=== PATIENT | female | born 1960 | race Caucasian/White ===

== ENCOUNTER 2017-04-18 20:16 | Inpatient (IN) ==
[2017-04-19] MEDS ORDERED: Ondansetron 4 MG/2 ML VIAL IVP PRN (01:46)
[2017-04-19] MEDS ORDERED: Naloxone 0.4 MG/ML INJ IVP PRN (01:46)
[2017-04-19] MEDS ORDERED: Ipratropium/Albuterol Neb 3 ML IH PRN (01:54)
[2017-04-19] MEDS ORDERED: *HR* LORazepam 2 MG/ML VIAL IVP PRN ×2 (01:57)
[2017-04-19 02:30] LABS: Hemoglobin 12.2 g/dL (11.5-15.4); Mean Corpuscular Hemoglobin 32.1 pg (28.0-33.3); Mean Corpuscular Volume 97.4 fL (83.0-100.0); Mean Platelet Volume 10.2 fL (9.4-12.4); Platelet Count 196 K/mcL (140-400); Red Cell Distribution Width 14.3 % (11.5-14.5)
[2017-04-19 02:45] LABS: BUN/Creatinine Ratio 11 (6-26); Blood Urea Nitrogen 8 mg/dL (6-20); Calcium 8.5 mg/dL (8.6-10.3); Carbon Dioxide 28 mEq/L (23-29); Chloride 98 mEq/L (98-107); Glucose 186 mg/dL (70-105); Magnesium 2.2 mg/dL (1.6-2.6); Osmolality,Calculated 281 (280-300); Phosphorous 3.5 mg/dL (2.7-4.5); Potassium 3.6 mEq/L (3.5-5.1); Sodium 134 mEq/L (136-145); eGFR For African Americans > 60 (> 60); eGFR For Non-African Americans > 60 (> 60)
[2017-04-19] MEDS: 0.9 % Sodium Chloride 1,000 ML IVC SCH ×2 (03:00→21:40)
[2017-04-19] MEDS: Acetaminophen 325 MG TABLET PO PRN (03:00)
[2017-04-19] MEDS: Azithromycin 500 MG in D5% in Water 250 ML IVPB SCH (03:01)
[2017-04-19 03:06] LABS: Lymphocytes # 0.8 K/mcL (0.6-4.6); Monocytes # 0.2 K/mcL (0.0-1.3); Platelet Estimate Normal (Normal)
[2017-04-19] MEDS: Ipratropium/Albuterol Neb 3 ML IH SCH ×4 (04:16→21:12)
--- NOTE | 2017-04-19 05:37 | Internal Med History&Physical ---
Date of Encounter: 04/19/17 Time of Encounter: 02:00 Assessment and Plan (1) Community acquired pneumonia Current visit: No Status: Acute Will treat pt with azithromycin and rocephin. Symptomatic treatment. Qualifiers: Laterality: unspecified laterality Qualified Code(s): J18.9 - Pneumonia, unspecified organism (2) Tobacco use Current visit: No Status: Chronic Smoking cessation education. Nicotine patch. (3) Alcohol use Current visit: No Status: Chronic Pt has hx of alcoholism, last drink was [address] pt on CIWA protocol and closely monitor pt. (4) DVT prophylaxis Current visit: No Status: Inactive Heparin SC (5) Acute exacerbation of chronic obstructive airways disease Current visit: No Status: Acute Pt has hx of COPD, has wheezing and increased SOB, consider COPD exacerbation. - Cont abx, steroid, and duoneb. Internal Medicine - H&P: HPI Chief complaint: Cough and SOB Admitted From: Home Plans for Post Hospital Care: Home History of present illness: Ms. 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 Pt said she feel ear fullness, sore throat since last . Pt also has nonproductive cough and subjective fever. Pt c/o SOB and nausea, but no vomiting. She said chest ache which may caused by cough. Pt has mild whole abd pain. Denies diarrhea. In [facility] [facility], CXR should possible lung infection. Pt was admitted for COPD exacerbation and pneumonia. Past Med Surg Social Fam HX - Past Medical History Medical history: COPD, GERD, hypertension, other Psychiatric history: no psych history - Past Surgical History Surgical History: , cholecystectomy, other - Social History Smoking Status: Current every day smoker Packs per day: 4 Smokeless Tobacco Status: No Alcohol use: heavy Drug use: none - Family History Father Living Status: Mother Living Status: Still Living Hx Family Respiratory Disorders: Yes (Emphysema) Internal Medicine - H&P: Meds Multivitamin [Multivitamins] 1 each PO DAILY 11/18/14 [History] Omeprazole [PriLOSEC] 20 mg PO BID 11/18/14 [History] Vitamin E 400 unit PO DAILY 11/18/14 [History] Calcium Carbonate/Vitamin D3 [Calcium 600 + Vit D Tablet] 1 tab PO DAILY [History] Vitamin C 1,000 mg PO DAILY 08/27/15 [History] Budesonide/Formoterol 160/4.5 [Symbicort 160/4.5] 160 mg IH TID 04/18/17 [ History] Gabapentin [Neurontin] 600 mg PO BID 04/18/17 [History] 3 Allergy/AdvReac Type Severity Reaction Status Date / Time venom-honey bee Allergy Mild Hives Verified 08/27/15 11:41 [bee venom (honey bee)] All Systems PM: A 10-system review of systems was performed and is negative for pertinent findings except as documented above in the HPI. - Constitutional Vitals: Temp Pulse Resp BP Pulse Ox 98.3 F 88 20 107/68 90 04/19/17 03:01 04/19/17 03:01 04/19/17 04:16 04/19/17 03:01 04/19/17 03:01 General appearance: Present: A&O X 3, no acute distress, answers questions appropriately - Head Head exam: Present: atraumatic, normocephalic - Eye Eye exam: Present: PERRL, conjuntiva pink, sclera anicteric Pupils: Present: PERRL - Neck Neck exam general surgery: Present: supple, trachea midline. Absent: lymphadenopathy - Respiratory Respiratory exam: Present: CTAB, wheezes (scattered wheezes b/l). Absent: accessory muscle use, rales, rhonchi - Cardiovascular Cardiovascular exam: Present: RRR, +S1, +S2. Absent: diastolic murmur, gallop, rubs, systolic murmur - GI/Abdominal GI/Abdominal exam: Present: normal bowel sounds, soft, no peritoneal signs. Absent: distended, tenderness - Extremities Exam Extremities exam: Present: warm, radial pulses palpable and symmetrical. Absent : calf tenderness, cyanotic, pedal edema - Neurological Exam Neurological exam: Present: CN II-XII intact, oriented X3, no focal deficits. Absent: pronater drift, facial droop, speech deficit - Skin Skin exam: Present: dry, intact Internal Med - H&P Results - Labs CBC & Chem 7: 04/19/17 02:07 04/19/17 02:07 Labs: Short CBC 04/19/17 Range/Units 02:07 WBC 8.0 (4.3-11.1) K/mcL Hgb 12.2 (11.5-15.4) g/dL Hct 37.0 (35.3-44.9) % Plt Count 196 (140-400) K/mcL Neutrophils # 7.0 (1.6-8.9) K/mcL BMP 04/19/17 02:07 Sodium 134 L Potassium 3.6 Chloride 98 Carbon Dioxide 28 BUN 8 Creatinine 0.70 Glucose 186 H Calcium 8.5 L - EKG Data -: EKG Interpreted by Myself EKG shows normal: sinus rhythm Rate: normal
[2017-04-19] MEDS: *HR* Heparin 5,000 UNIT/ML VIAL SQ SCH ×2 (06:06→19:12)
[2017-04-19] MEDS: Ascorbic Acid 500 MG TABLET PO SCH (09:50)
[2017-04-19] MEDS: Gabapentin 300 MG CAPSULE PO SCH ×2 (09:50→19:56)
[2017-04-19] MEDS: Multivit/Ca/Min/Fe/FA 1 TAB TABLET PO SCH (09:50)
[2017-04-19] MEDS: predniSONE 20 MG TABLET PO SCH (09:51)
[2017-04-19] MEDS: Nicotine 21 MG PATCH.TD24 TD SCH (09:52)
[2017-04-19] MEDS: Budesonide/Formoterol 160/4.5 MDI IH SCH ×2 (11:42→21:11)
[2017-04-19] MEDS: cefTRIAXone 1,000 MG in Water for inj. (sterile) 20 ML 10 ML IVP SCH (15:59)
--- NOTE | 2017-04-19 17:14 | Event Note ---
Date of Encounter: 04/19/17 Time of Encounter: 10:30 Patient continues to have shortness of breath and wheezing. Improved compared to yesterday evening. Denies any chest pain. No nausea or vomiting. Continue O2 supplementation. Patient will need to be evaluated for home oxygen prior to discharge.
[2017-04-19] MEDS: Thiamine (B-1) 100 MG, Folic Acid 1 MG, MVI, adult with vitamin K 10 ML in 0.9 % Sodi... IVPB SCH (19:13)
[2017-04-19 20:26] LABS: Adenovirus Not Detected (Not Detect); Bordetella Pertussis Not Detected (Not Detect); Chlamydophila pneumoniae Not Detected (Not Detect); Coronavirus 229E Not Detected (Not Detect); Coronavirus HKU1 Not Detected (Not Detect); Coronavirus NL63 Not Detected (Not Detect); Coronavirus OC43 Not Detected (Not Detect); Human Metapneumovirus Not Detected (Not Detect); Human Rhinovirus/Enterovirus Not Detected (Not Detect); Influenza A Subtype 2009 H1 Not Detected (Not Detect); Influenza A Untypeable Not Detected (Not Detect); Influenza B Not Detected (Not Detect); Mycoplasma pneumoniae Not Detected (Not Detect); Parainfluenza Virus 1 Not Detected (Not Detect); Parainfluenza Virus 2 Not Detected (Not Detect); Parainfluenza Virus 3 Not Detected (Not Detect); Parainfluenza Virus 4 Not Detected (Not Detect); Respiratory Syncytial Virus Not Detected (Not Detect)
[2017-04-20] MEDS: Ipratropium/Albuterol Neb 3 ML IH SCH ×4 (03:36→21:44)
[2017-04-20] MEDS: Budesonide/Formoterol 160/4.5 MDI IH SCH ×4 (03:37→21:44)
[2017-04-20] MEDS: Azithromycin 500 MG in D5% in Water 250 ML IVPB SCH (05:38)
[2017-04-20] MEDS: *HR* LORazepam 2 MG/ML VIAL IVP PRN (05:51)
[2017-04-20] MEDS: *HR* Heparin 5,000 UNIT/ML VIAL SQ SCH ×2 (05:52→18:20)
[2017-04-20] MEDS: predniSONE 20 MG TABLET PO SCH (09:08)
[2017-04-20] MEDS: Ascorbic Acid 500 MG TABLET PO SCH (09:09)
[2017-04-20] MEDS: Gabapentin 300 MG CAPSULE PO SCH ×2 (09:09→19:56)
[2017-04-20] MEDS: Nicotine 21 MG PATCH.TD24 TD SCH (09:16)
[2017-04-20] MEDS: Multivit/Ca/Min/Fe/FA 1 TAB TABLET PO SCH (09:19)
[2017-04-20] MEDS: Acetaminophen 325 MG TABLET PO PRN (13:23)
[2017-04-20] MEDS: cefTRIAXone 1,000 MG in Water for inj. (sterile) 20 ML 10 ML IVP SCH (14:39)
--- NOTE | 2017-04-20 15:53 | Internal Med Progress Note ---
Date of Encounter: 04/20/17 Time of Encounter: 10:25 - Assessment and plan (1) Acute respiratory failure with hypoxia Current Visit: Yes Status: Acute Assessment and plan: Continue O2 supplementation. Wean FiO2 as tolerated. Due to acute exhibition of COPD and pneumonia. Will evaluate for home oxygen needs prior to discharge. (2) Acute exacerbation of chronic obstructive airways disease Current Visit: Yes Status: Acute Assessment and plan: Continue prednisone, bronchodilator nebs. Patient continues to have significant wheezing and hypoxia. (3) Community acquired pneumonia Current Visit: Yes Status: Acute Assessment and plan: Bibasal A based these per initial chest x-ray. Continue current antibiotics. Respiratory infection panel was negative. Continue ceftriaxone and azithromycin. Moderate risk for complications Qualifiers: Laterality: unspecified laterality Qualified Code(s): J18.9 - Pneumonia, unspecified organism (4) Tobacco use Current Visit: No Status: Chronic (5) Alcohol use Current Visit: Yes Status: Chronic Assessment and plan: Monitoring for withdrawal symptoms Per CIWA protocol. Continue thiamine. (6) DVT prophylaxis Current Visit: Yes Status: Inactive Assessment and plan: With subcutaneous heparin - Subjective Interval history: Patient complains of increased stuffiness in her nose and ears. Shortness of breath is improving. Cough is also improving. No fever or chills reported overnight. Still requiring O2 supplementation. - Constitutional Vitals: Temp Pulse Resp BP Pulse Ox 98.4 F 87 17 118/75 93 04/20/17 07:36 04/20/17 07:36 04/20/17 07:36 04/20/17 07:36 04/20/17 11:47 General appearance: Present: A&O X 3, no acute distress, answers questions appropriately - Respiratory Respiratory exam: Present: prolonged expiratory phase, wheezes (Bilateral end expiratory). Absent: accessory muscle use, rales, rhonchi - Cardiovascular Cardiovascular exam: Present: RRR, +S1, +S2. Absent: diastolic murmur, gallop, rubs, systolic murmur - GI/Abdominal GI/Abdominal exam: Present: normal bowel sounds, soft, no peritoneal signs. Absent: distended, tenderness - Extremities Exam Extremities exam: Present: warm, radial pulses palpable and symmetrical. Absent : calf tenderness, cyanotic, pedal edema - Neurological Exam Neurological exam: Present: CN II-XII intact, oriented X3, no focal deficits. Absent: facial droop, speech deficit Internal Medicine: Result - Labs CBC & Chem 7: 04/19/17 02:07 04/19/17 02:07 Consult Discharge Plan - Plan Referrals: Jade Snider CNP [Advanced Practice Nurse] - 04/25/17 10:00 am
[2017-04-20] MEDS: Thiamine (B-1) 100 MG, Folic Acid 1 MG, MVI, adult with vitamin K 10 ML in 0.9 % Sodi... IVPB SCH (18:10)
[2017-04-20] MEDS: Acetaminophen/Butalbital/CaffeineTABLET PO PRN (19:56)
[2017-04-21] MEDS: *HR* LORazepam 2 MG/ML VIAL IVP PRN (00:53)
[2017-04-21] MEDS: Ipratropium/Albuterol Neb 3 ML IH SCH ×2 (04:27→10:31)
[2017-04-21] MEDS: Azithromycin 500 MG in D5% in Water 250 ML IVPB SCH (05:09)
[2017-04-21] MEDS: *HR* Heparin 5,000 UNIT/ML VIAL SQ SCH (05:10)
[2017-04-21 06:35] VITALS: BP 128/72
[2017-04-21] MEDS: Acetaminophen/Butalbital/CaffeineTABLET PO PRN (06:55)
[2017-04-21] MEDS: Multivit/Ca/Min/Fe/FA 1 TAB TABLET PO SCH (10:18)
[2017-04-21] MEDS: Gabapentin 300 MG CAPSULE PO SCH (10:18)
[2017-04-21] MEDS: Ascorbic Acid 500 MG TABLET PO SCH (10:18)
[2017-04-21] MEDS: Nicotine 21 MG PATCH.TD24 TD SCH (10:18)
[2017-04-21] MEDS: predniSONE 20 MG TABLET PO SCH (10:18)
[2017-04-21] MEDS: Budesonide/Formoterol 160/4.5 MDI IH SCH (10:30)
--- NOTE | 2017-04-21 12:13 | Discharge Summary ---
Date of Encounter: 04/21/17 Time of Encounter: 11:58 - Discharge Diagnosis (1) Acute respiratory failure with hypoxia Priority: Primary Status: Acute (2) Acute exacerbation of chronic obstructive airways disease Priority: Secondary Status: Acute (3) Community acquired pneumonia Priority: Secondary Status: Acute Qualifiers: Laterality: unspecified laterality Qualified Code(s): J18.9 - Pneumonia, unspecified organism (4) Tobacco use Priority: Secondary Status: Chronic (5) Alcohol use Priority: Secondary Status: Chronic (6) DVT prophylaxis Priority: Secondary Status: Acute - Discharge Medications Prescriptions: GuaiFENesin/Dextromethorphan [Robitussin/Dm] 10 ml PO Q6HR PRN #250 ml PRN Reason: Cough Azithromycin [Zithromax] 500 mg PO DAILY 5 Days #10 tablet Cefdinir [Omnicef] 300 mg PO BID #14 capsule predniSONE [PredniSONE] 10 mg PO DAILY 8 Days tablet Home Medications: Multivitamin [Multivitamins] 1 each PO DAILY 11/18/14 [History] Vitamin E 400 unit PO DAILY 11/18/14 [History] Ascorbic Acid [Vitamin C] 1,000 mg PO DAILY #0 08/27/15 [History] Calcium Carbonate/Vitamin D3 [Calcium 600 + Vit D Tablet] 1 tab PO DAILY [History] Budesonide/Formoterol 160/4.5 [Symbicort 160/4.5] 160 mg IH TID 04/18/17 [ History] Aclidinium Gordon [Tudorza Pressair] 400 mcg IH DAILY 04/19/17 [History] Cholestyramine 4 gm PO DAILY 04/19/17 [History] Cyanocobalamin (Vitamin B-12) [Vitamin B-12] 1,000 mcg SL DAILY 04/19/17 [ History] Fluticasone Propionate Nasal [Flonase] 1 spr NS DAILY PRN 04/19/17 [History] Gabapentin [Neurontin] 300 mg PO TID 04/19/17 [History] Magnesium Oxide 400 mg PO DAILY 04/19/17 [History] Omeprazole [PriLOSEC] 40 mg PO DAILY 04/19/17 [History] Promethazine [Phenergan] 25 mg PO DAILY PRN 04/19/17 [History] amLODIPine [Norvasc] 5 mg PO DAILY 04/19/17 [History] Azithromycin [Zithromax] 500 mg PO DAILY 5 Days #10 tablet 04/21/17 [Rx] Cefdinir [Omnicef] 300 mg PO BID #14 capsule 04/21/17 [Rx] GuaiFENesin/Dextromethorphan [Robitussin/Dm] 10 ml PO Q6HR PRN #250 ml 04/21/17 [Rx] predniSONE [PredniSONE] 10 mg PO DAILY 8 Days tablet 04/21/17 [Rx] Allergies/Adverse Reactions: 3 Allergy/AdvReac Type Severity Reaction Status Date / Time venom-honey bee Allergy Mild Hives Verified 04/19/17 09:26 [bee venom (honey bee)] Date of admission: 04/19/17 01:46 Primary care physician: PCP NONE Consults: 04/19/17 01:57 Consult to Super[employer] [CONS] Routine Reason for SW Consult: Alcoholism Discharging clinician: Carrie Melara Anticipated date of discharge: 04/21/17 - Patient Status Disposition: Home, Self-Care Condition: Good Functional capacity at discharge: independent ambulation Overall status at discharge: patient is progressing back to baseline - Discharge Instructions Instructions: Decongestant/Expectorant (By mouth), Prednisone (By mouth), Azithromycin (By mouth), Cefdinir (By mouth), Acute Respiratory Distress Syndrome (DC), Chronic Obstructive Pulmonary Disease (DC) Follow Up With: Jade Snider CNP [Advanced Practice Nurse] - 04/25/17 10:00 am - Diet and Activity Activity: increase activity as tolerated, wear oxygen at all times Diet: low fat, low cholesterol, low salt diet Hospital course: Ms. Sawant is a 57 year old female patient with history of COPD who was admitted here with acute hypoxic respiratory failure and acute exacerbation of COPD. She was treated for these conditions with intra-venous steroids, bronchodilators and O2 supplementation along with antibiotics. Her symptoms have slowly improved and overall she is doing much better. She does have upper respiratory symptoms of nasal congestion and sinus pressure. Patient does take Flonase at home for this. She was evaluated for home oxygen and did qualify for this and so will be provided with home oxygen prior to discharge. She is clinically stable to be discharged home with home oxygen, steroid taper and will complete short course of antibiotics. - Time Spent with Patient Total time spent providing and/or coordinating discharge services: Greater than 30 minutes (35 min) - Constitutional Vitals: Temp Pulse Resp BP Pulse Ox 98.8 F 97 20 128/72 97 04/21/17 11:26 04/21/17 11:26 04/21/17 11:26 04/21/17 06:31 04/21/17 06:31 General appearance: Present: A&O X 3, no acute distress, answers questions appropriately - Respiratory Respiratory exam: Present: prolonged expiratory phase, wheezes (mild end expiratory wheezing). Absent: accessory muscle use, rales, rhonchi - Cardiovascular Cardiovascular exam: Present: RRR, +S1, +S2. Absent: diastolic murmur, gallop, rubs, systolic murmur - GI/Abdominal GI/Abdominal exam: Present: normal bowel sounds, soft, no peritoneal signs. Absent: distended, tenderness
[2017-04-21] MEDS: cefTRIAXone 1,000 MG in Water for inj. (sterile) 20 ML 10 ML IVP SCH (13:37)
== END 2017-04-21 15:10 | disposition home or self-care (01) | DRG 140 ==
LOC: 3BNU → SUATTDRO 04-19 01:46
PROVIDERS: ADMIT Internal Medicine; ATTEND Internal Medicine

== ENCOUNTER 2019-03-09 02:41 | Inpatient (IN) ==
[2019-03-09] MEDS ORDERED: Isovue-370 500 ML BOTTLE IVP ONE (06:30)
[2019-03-09] MEDS ORDERED: Naloxone 0.4 MG/ML INJ IVP PRN (06:41)
[2019-03-09] MEDS ORDERED: *HR* LORazepam 2 MG/ML VIAL IVP PRN ×3 (06:41)
[2019-03-09] MEDS ORDERED: Potassium Chloride Elixir 20 MEQ/15 ML UDC PO ONE (06:41)
[2019-03-09] MEDS ORDERED: Ringers Solution, Lactated 1,000 ML IVC ONE (06:52)
[2019-03-09] MEDS ORDERED: Nicotine 2 MG GUM BC PRN (06:54)
[2019-03-09] MEDS ORDERED: 0.9 % Sodium Chloride 1,000 ML IVC SCH (07:00)
[2019-03-09] MEDS ORDERED: Vancomycin (wt based) 1,000 MG VIAL IVPB SCH (07:00)
[2019-03-09 07:42] LABS: ABG Base Excess 6 mEq/L (-2 to 3); ABG HCO3 33 mEq/L (21-27); ABG Oxygen Saturation 90 % (95-98); ABG PCO2 57 mmHg (35-45); ABG PH 7.38 pH Units (7.32-7.45); ABG PO2 61 mmHg (85-104); ABG TCO2 35 mEq/L (20-26)
[2019-03-09] MEDS ORDERED: MetroNIDAZOLE 500 MG/100 ML 500 MG/100 ML BAG IVPB SCH (08:00)
[2019-03-09 08:58] LABS: Basophils % 0.1 %; Hematocrit 39.5 % (35.3-44.9); Hemoglobin 12.7 g/dL (11.5-15.4); Immature Granulocytes % 0.5 % (0-4); Lymphocytes # 0.6 K/mcL (0.6-4.6); Lymphocytes % 3.9 %; Mean Corpuscular HGB Conc 32.2 g/dL (31.6-35.5); Mean Corpuscular Hemoglobin 33.4 pg (28.0-33.3); Mean Corpuscular Volume 103.9 fL (83.0-100.0); Mean Platelet Volume 9.7 fL (9.4-12.4); Monocytes # 0.1 K/mcL (0.0-1.3); Monocytes % 0.9 %; Neutrophils # 13.2 K/mcL (1.6-8.9); Platelet Count 234 K/mcL (140-400); Red Cell Distribution Width 13.5 % (11.5-14.5); Segmented Neutrophils % 94.6 %
[2019-03-09 09:04] LABS: INR 1.1; Prothrombin Time 12.5 Seconds (9.4-12.1)
[2019-03-09 09:17] LABS: Magnesium 2.1 mg/dL (1.6-2.6); Phosphorous 3.9 mg/dL (2.7-4.5)
[2019-03-09] MEDS: Cefepime HCl 2,000 MG in Water for inj. (sterile) 20 ML IVP SCH ×2 (09:18→15:44)
[2019-03-09] MEDS: Vitamin B Complex/Vit C/Vit E 1 EACH TABLET PO SCH (09:18)
[2019-03-09] MEDS: Thiamine (B-1) 100 MG TABLET PO SCH (09:18)
[2019-03-09] MEDS: Folic Acid 1 MG TABLET PO SCH (09:18)
[2019-03-09] MEDS: Nicotine 14 MG PATCH.TD24 TD SCH (09:21)
[2019-03-09 09:22] LABS: Platelet Estimate Normal (Normal); Toxic Granulation Present (Not Present)
[2019-03-09 09:26] LABS: BUN/Creatinine Ratio 10 (6-26); Blood Urea Nitrogen 5 mg/dL (6-20); Carbon Dioxide 28 mEq/L (23-29); Chloride 99 mEq/L (98-107); Glucose 140 mg/dL (70-105); Osmolality,Calculated 286 (280-300); Potassium 4.5 mEq/L (3.5-5.1); Sodium 138 mEq/L (136-145); eGFR For African Americans > 60 (> 60); eGFR For Non-African Americans > 60 (> 60)
[2019-03-09] MEDS: Ipratropium/Albuterol Neb 3 ML IH SCH ×5 (10:51→23:55)
[2019-03-09] MEDS: Azithromycin 500 MG in 0.9 % Sodium Chloride 250 ML IVPB SCH (11:17)
[2019-03-09] MEDS: MethylPREDNISolone 40 MG/ML VIAL IVP SCH ×2 (11:17→15:44)
[2019-03-09] MEDS ORDERED: Aspirin 325 MG TABLET PO ONE (11:56)
[2019-03-09] MEDS ORDERED: Fluticasone Propionate Nasal 50 MCG/SPRAY BOTTLE NS PRN (14:39)
[2019-03-09] MEDS: Gabapentin 400 MG CAPSULE PO SCH ×2 (15:44→21:40)
[2019-03-09 16:09] LABS: Amphetamine Screen,Urine Negative ng/mL (Cutoff=1000); Barbiturate Screen,Urine Negative ng/mL (Cutoff=200); Benzodiazepines Screen,Urine Negative ng/mL (Cutoff=200); Cannabinoid Screen,Urine Negative ng/mL (Cutoff = 50); Cocaine Screen,Urine Negative ng/mL (Cutoff= 300); Opiate Screen,Urine Negative ng/mL (Cutoff=300); Phencyclidine Screen,Urine Negative ng/mL (Cutoff=25); Sodium, Urine 31.9 mEq/L
[2019-03-09] MEDS: *HR* Heparin 5,000 UNIT/ML VIAL SQ SCH (17:13)
[2019-03-09] MEDS: rOPINIRole 1 MG TABLET PO SCH (21:39)
[2019-03-09] MEDS: Benzonatate 100 MG CAPSULE PO PRN (21:40)
[2019-03-10] MEDS: Cefepime HCl 2,000 MG in Water for inj. (sterile) 20 ML IVP SCH ×4 (00:50→23:50)
[2019-03-10] MEDS: MethylPREDNISolone 40 MG/ML VIAL IVP SCH ×4 (00:51→23:50)
[2019-03-10] MEDS: Ipratropium/Albuterol Neb 3 ML IH SCH ×5 (04:02→20:41)
[2019-03-10 04:47] LABS: Hematocrit 38.1 % (35.3-44.9); Hemoglobin 12.2 g/dL (11.5-15.4); Mean Corpuscular Hemoglobin 32.8 pg (28.0-33.3); Mean Corpuscular Volume 102.4 fL (83.0-100.0); Mean Platelet Volume 9.7 fL (9.4-12.4); Platelet Count 277 K/mcL (140-400); Red Blood Count 3.72 M/mcL (3.82-4.97); Red Cell Distribution Width 13.6 % (11.5-14.5); White Blood Count 12.7 K/mcL (4.3-11.1)
[2019-03-10 05:07] LABS: BUN/Creatinine Ratio 20 (6-26); Blood Urea Nitrogen 10 mg/dL (6-20); Calcium 9.2 mg/dL (8.6-10.3); Carbon Dioxide 33 mEq/L (23-29); Chloride 99 mEq/L (98-107); Glucose 160 mg/dL (70-105); Osmolality,Calculated 288 (280-300); Potassium 4.5 mEq/L (3.5-5.1); Sodium 138 mEq/L (136-145); eGFR For African Americans > 60 (> 60); eGFR For Non-African Americans > 60 (> 60)
[2019-03-10] MEDS: *HR* Heparin 5,000 UNIT/ML VIAL SQ SCH ×2 (06:14→17:20)
[2019-03-10] MEDS ORDERED: Regadenoson 0.4 MG/5 ML SYRINGE IVP ONE (08:44)
[2019-03-10] MEDS ORDERED: NON-FORMULARY MEDICATION 1 EACH EACH (Calcium Carbonate/Vitamin D3 [Calcium 600 + Vit D Ta PO SCH (09:00)
[2019-03-10] MEDS: BuPROPion XL (24 HR) 150 MG TABLET PO SCH (09:43)
[2019-03-10] MEDS: Nicotine 14 MG PATCH.TD24 TD SCH (09:43)
[2019-03-10] MEDS: Vitamin B Complex/Vit C/Vit E 1 EACH TABLET PO SCH (09:44)
[2019-03-10] MEDS: Gabapentin 400 MG CAPSULE PO SCH ×3 (09:44→19:42)
[2019-03-10] MEDS: Cholecalciferol (D-3) 1,000 UNIT (25MCG) TABLET PO SCH (09:44)
[2019-03-10] MEDS: Cyanocobalamin (B-12) 1,000 MCG TABLET PO SCH (09:44)
[2019-03-10] MEDS: Loratadine 10 MG TABLET PO SCH (09:44)
[2019-03-10] MEDS: Furosemide 20 MG TABLET PO SCH (09:44)
[2019-03-10] MEDS: Folic Acid 1 MG TABLET PO SCH (09:44)
[2019-03-10] MEDS: Azithromycin 500 MG in 0.9 % Sodium Chloride 250 ML IVPB SCH (09:45)
[2019-03-10] MEDS: Thiamine (B-1) 100 MG TABLET PO SCH (09:47)
[2019-03-10] MEDS: Aspirin Enteric Coated 81 MG Tablet PO SCH (11:09)
[2019-03-10] MEDS: Acetaminophen 325 MG TABLET PO PRN ×2 (11:09→17:20)
[2019-03-10] MEDS: Metoprolol XL (24 HR) Succ 25 MG TAB.ER.24H PO SCH (11:09)
[2019-03-10] MEDS: rOPINIRole 1 MG TABLET PO SCH (19:42)
[2019-03-11] MEDS: Ipratropium/Albuterol Neb 3 ML IH SCH ×6 (00:02→20:33)
[2019-03-11 02:38] LABS: Hematocrit 37.8 % (35.3-44.9); Mean Corpuscular HGB Conc 31.7 g/dL (31.6-35.5); Mean Corpuscular Volume 103.8 fL (83.0-100.0); Mean Platelet Volume 9.8 fL (9.4-12.4); Platelet Count 291 K/mcL (140-400); Red Blood Count 3.64 M/mcL (3.82-4.97); Red Cell Distribution Width 13.7 % (11.5-14.5); White Blood Count 12.1 K/mcL (4.3-11.1)
[2019-03-11 02:56] LABS: BUN/Creatinine Ratio 26 (6-26); Blood Urea Nitrogen 14 mg/dL (6-20); Calcium 9.2 mg/dL (8.6-10.3); Carbon Dioxide 32 mEq/L (23-29); Chloride 98 mEq/L (98-107); Glucose 136 mg/dL (70-105); Osmolality,Calculated 289 (280-300); Potassium 4.3 mEq/L (3.5-5.1); Sodium 138 mEq/L (136-145); eGFR For African Americans > 60 (> 60); eGFR For Non-African Americans > 60 (> 60)
[2019-03-11] MEDS: *HR* Heparin 5,000 UNIT/ML VIAL SQ SCH ×2 (05:17→18:21)
[2019-03-11] MEDS: Furosemide 20 MG TABLET PO SCH (09:30)
[2019-03-11] MEDS: Cefepime HCl 2,000 MG in Water for inj. (sterile) 20 ML IVP SCH ×3 (09:40→23:44)
[2019-03-11] MEDS: Azithromycin 500 MG in 0.9 % Sodium Chloride 250 ML IVPB SCH (09:40)
[2019-03-11] MEDS: Metoprolol XL (24 HR) Succ 25 MG TAB.ER.24H PO SCH (09:41)
[2019-03-11] MEDS: BuPROPion XL (24 HR) 150 MG TABLET PO SCH (09:42)
[2019-03-11] MEDS: MethylPREDNISolone 40 MG/ML VIAL IVP SCH ×3 (09:42→23:44)
[2019-03-11] MEDS: Cholecalciferol (D-3) 1,000 UNIT (25MCG) TABLET PO SCH (09:42)
[2019-03-11] MEDS: Gabapentin 400 MG CAPSULE PO SCH ×3 (09:42→19:37)
[2019-03-11] MEDS: Thiamine (B-1) 100 MG TABLET PO SCH (09:42)
[2019-03-11] MEDS: Nicotine 14 MG PATCH.TD24 TD SCH (09:42)
[2019-03-11] MEDS: Cyanocobalamin (B-12) 1,000 MCG TABLET PO SCH (09:42)
[2019-03-11] MEDS: Folic Acid 1 MG TABLET PO SCH (09:42)
[2019-03-11] MEDS: Vitamin B Complex/Vit C/Vit E 1 EACH TABLET PO SCH (09:42)
[2019-03-11] MEDS: Aspirin Enteric Coated 81 MG Tablet PO SCH (09:42)
[2019-03-11] MEDS: Loratadine 10 MG TABLET PO SCH (09:42)
[2019-03-11] MEDS: Benzonatate 100 MG CAPSULE PO PRN (15:37)
[2019-03-11] MEDS: rOPINIRole 1 MG TABLET PO SCH (19:37)
[2019-03-12] MEDS: Ipratropium/Albuterol Neb 3 ML IH SCH ×5 (00:18→16:05)
[2019-03-12 03:01] LABS: Basophils # 0.1 K/mcL (0.0-0.2); Basophils % 0.5 %; Hematocrit 40.3 % (35.3-44.9); Hemoglobin 12.5 g/dL (11.5-15.4); Immature Granulocytes % 1.9 % (0-4); Lymphocytes # 1.4 K/mcL (0.6-4.6); Lymphocytes % 11.3 %; Mean Corpuscular Hemoglobin 32.8 pg (28.0-33.3); Mean Corpuscular Volume 105.8 fL (83.0-100.0); Mean Platelet Volume 9.7 fL (9.4-12.4); Monocytes # 0.7 K/mcL (0.0-1.3); Monocytes % 5.7 %; Platelet Count 340 K/mcL (140-400); Red Blood Count 3.81 M/mcL (3.82-4.97); Red Cell Distribution Width 13.4 % (11.5-14.5); Segmented Neutrophils % 80.6 %; White Blood Count 12.3 K/mcL (4.3-11.1)
[2019-03-12 03:19] LABS: BUN/Creatinine Ratio 25 (6-26); Blood Urea Nitrogen 13 mg/dL (6-20); Calcium 9.3 mg/dL (8.6-10.3); Carbon Dioxide 34 mEq/L (23-29); Chloride 95 mEq/L (98-107); Glucose 138 mg/dL (70-105); Osmolality,Calculated 286 (280-300); Potassium 4.2 mEq/L (3.5-5.1); Sodium 137 mEq/L (136-145); eGFR For African Americans > 60 (> 60); eGFR For Non-African Americans > 60 (> 60)
[2019-03-12] MEDS: *HR* Heparin 5,000 UNIT/ML VIAL SQ SCH (05:15)
[2019-03-12 06:49] VITALS: BP 145/95
[2019-03-12] MEDS: BuPROPion XL (24 HR) 150 MG TABLET PO SCH (08:55)
[2019-03-12] MEDS: Vitamin B Complex/Vit C/Vit E 1 EACH TABLET PO SCH (08:55)
[2019-03-12] MEDS: Thiamine (B-1) 100 MG TABLET PO SCH (08:55)
[2019-03-12] MEDS: Cholecalciferol (D-3) 1,000 UNIT (25MCG) TABLET PO SCH (08:55)
[2019-03-12] MEDS: Furosemide 20 MG TABLET PO SCH (08:55)
[2019-03-12] MEDS: Aspirin Enteric Coated 81 MG Tablet PO SCH (08:55)
[2019-03-12] MEDS: Metoprolol XL (24 HR) Succ 25 MG TAB.ER.24H PO SCH (08:55)
[2019-03-12] MEDS: MethylPREDNISolone 40 MG/ML VIAL IVP SCH (08:56)
[2019-03-12] MEDS: Gabapentin 400 MG CAPSULE PO SCH ×2 (08:56→15:33)
[2019-03-12] MEDS: Loratadine 10 MG TABLET PO SCH (08:56)
[2019-03-12] MEDS: Cefepime HCl 2,000 MG in Water for inj. (sterile) 20 ML IVP SCH (08:56)
[2019-03-12] MEDS: Folic Acid 1 MG TABLET PO SCH (08:56)
[2019-03-12] MEDS: Cyanocobalamin (B-12) 1,000 MCG TABLET PO SCH (08:56)
[2019-03-12] MEDS: Nicotine 14 MG PATCH.TD24 TD SCH (08:57)
[2019-03-12] MEDS ORDERED: FLU Vac QV 19-20 (6Month+)/PF 0.5 ML SYRINGE IM ONE (13:33)
[2019-03-12] MEDS: Azithromycin 500 MG in 0.9 % Sodium Chloride 250 ML IVPB SCH (15:33)
== END 2019-03-12 19:00 | disposition home or self-care (01) | DRG 720 ==
LOC: 2NENU → SUATTDRO 06:56
PROVIDERS: ADMIT Internal Medicine; ATTEND Internal Medicine